=== PATIENT | male | born 1960 | race Caucasian/White ===

== ENCOUNTER 2020-07-04 23:56 | Emergency (ER) | payer MEDICAID ==
[2020-07-05] VITALS: BP 78/57; Ht 185.4 cm
== END 2020-07-05 01:13 | disposition left against medical advice (07) ==
LOC: ED 23:56
DX: R40.4 Transient alteration of awareness (principal); T40.601A Poisoning by unspecified narcotics, accidental (unintentional), initial encounter; Y92.89 Other specified places as the place of occurrence of the external cause
CPT/HCPCS: 36600; G0480; J2310; J7030